=== PATIENT | male | born 1950 | race African-American/Black ===

== ENCOUNTER 2024-08-30 16:11 | Emergency (ER) | payer MEDICARE ==
[~2024-08-30] VITALS: Ht 165.1 cm; Wt 64.0 kg
[2024-08-30 16:19] VITALS: O2SAT 98
[2024-08-30 17:27] LABS: BASOPHILS % 0.5 % (0.0-2.0); EOSINOPHILS % 0.4 % (0.0-5.0); HEMATOCRIT. 42.2 % (42.0-52.0); HEMOGLOBIN. 13.6 g/dL (14.0-18.0); LYMPHOCYTES % 12.9 % (20.0-50.0); MEAN CORPUSCULAR HGB CONC 32.3 g/dL (31.0-37.0); MEAN CORPUSCULAR VOLUME 89.8 fL (80.0-94.0); MEAN PLATELET VOLUME 9.7 fl (7.4-10.4); MONOCYTES % 6.1 % (2.0-8.0); NEUTROPHILS % 80.1 % (40.0-76.0); PLATELET 263 x1000/uL (130-400); RED CELL DISTRIBUTION WIDTH 15.4 % (11.6-14.6); WHITE BLOOD COUNT 8.4 x1000/uL (4.5-11.0)
[2024-08-30 17:29] LABS: CHLORIDE 107 mEq/L (98-107); POTASSIUM 3.9 mEq/L (3.5-5.1); SODIUM 137 mEq/L (136-145)
[2024-08-30 17:30] LABS: CALCIUM 9.8 mg/dL (8.7-10.4); CARBON DIOXIDE 20 mEq/L (21-32)
[2024-08-30 17:35] LABS: CREATININE 1.8 mg/dL (0.6-1.3); GLUCOSE 168 mg/dL (70-105); UREA NITROGEN BLOOD 35 mg/dL (9-23)
[2024-08-30 17:36] LABS: TROPONIN I HIGH SENSITIVITY 12 ng/L (3.0-53)
[2024-08-30 18:42] VITALS: BP 129/66; PULSE 73; RESP 16; TEMP 36.89184; O2SAT 99
== END 2024-08-30 19:59 | disposition home or self-care (01) ==
LOC: ER 16:11
DX: R51.9 Headache, unspecified (principal); I48.91 Unspecified atrial fibrillation; E11.9 Type 2 diabetes mellitus without complications
CPT/HCPCS: 36415; 71045; 80048; 84484; 85025; 99284